=== PATIENT | female | born 1975 | race Caucasian/White ===

== ENCOUNTER 2018-03-07 11:57 | Inpatient (IN) | payer OTHER ==
[~2018-03-07] VITALS: Ht 152.4 cm; Wt 72.6 kg
[2018-03-07 12:03] VITALS: BP_SYST 137
[2018-03-07] MEDS ORDERED: KETOROLAC TROMETHAMINE 30 MG VIAL IVP ONE (12:45)
[2018-03-07 12:54] LABS: BASOPHILS % (AUTO) 0.4 % (0.0-2.0); EOSINOPHILS # (AUTO) 0.4 K/uL (0.0-0.4); EOSINOPHILS % (AUTO) 5.2 % (0.0-4.0); HEMATOCRIT 39.3 % (36-48); HEMOGLOBIN 13.3 g/dL (12.0-16.0); LYMPHOCYTES % (AUTO) 24.4 % (20.5-51.5); MEAN CORPUSCULAR HEMOGLOBIN 31 pg (27-31); MEAN CORPUSCULAR HGB CONC 34 % (32-36); MEAN CORPUSCULAR VOLUME 91 fL (79.0-98.0); MONOCYTES # (AUTO) 0.5 K/uL (0.0-1.0); MONOCYTES % (AUTO) 5.8 % (1.7-9.3); NEUTROPHILS # (AUTO) 5.1 K/uL (1.8-7.7); NEUTROPHILS % (AUTO) 64.2 % (40.0-70.0); PLATELET COUNT (AUTO) 297 K/uL (130-430); RED BLOOD CELL COUNT(AUTO) 4.32 MIL/uL (4.2-6.2); RED CELL DISTRIBUTION WIDTH 12.8 % (9.0-15.0)
[2018-03-07 13:10] LABS: CALCIUM 8.5 mg/dL (8.4-11.0); CREATININE 0.61 mg/dL (0.55-1.30); POTASSIUM 3.8 mmol/L (3.5-5.1)
[2018-03-07 13:15] LABS: ALBUMIN 3.2 g/dL (3.4-4.8); TOTAL BILIRUBIN 0.3 mg/dL (0.0-1.0)
[2018-03-07] MEDS ORDERED: fentaNYL CITRATE/PF 100 MCG/2 ML AMP IVP ONE (14:00)
[2018-03-07] MEDS ORDERED: KETOROLAC TROMETHAMINE 15 MG VIAL IVP SCH (14:45)
[2018-03-07] MEDS ORDERED: METO-442 PO (15:21)
[2018-03-07 15:48] VITALS: BP_SYST 132
[2018-03-07] MEDS ORDERED: LORazepam 1 MG TABLET PO ONE (17:00)
[2018-03-07] MEDS ORDERED: HYDROmorphone 2 MG/ML VIAL IVP PRN ×2 (17:00→18:45)
[2018-03-07] MEDS: ONDANSETRON HCL 4 MG/2 ML VIAL IVP PRN (17:30)
[2018-03-07 20:30] VITALS: BP_SYST 119
[2018-03-07] MEDS: CYCLOBENZAPRINE HCL 10 MG TABLET (FLEXERIL) PO SCH (20:45)
[2018-03-07] MEDS: ENOXAPARIN SODIUM 40 MG/0.4 ML SYRINGE SUBCUT SCH (20:47)
[2018-03-07] MEDS: HYDROmorphone 1 MG INJ. 1 MG/ML AMPUL IM PRN (21:38)
[2018-03-08] MEDS: HYDROmorphone 1 MG INJ. 1 MG/ML AMPUL IM PRN (01:25)
[2018-03-08 02:13] VITALS: BP_SYST 108
[2018-03-08] MEDS: KETOROLAC TROMETHAMINE 15 MG VIAL IVP PRN ×2 (04:59→12:58)
[2018-03-08] MEDS: ONDANSETRON HCL 4 MG/2 ML VIAL IVP PRN ×2 (05:44→19:58)
[2018-03-08] MEDS: HYDROmorphone 1 MG INJ. 1 MG/ML AMPUL IVP PRN ×5 (05:45→23:13)
[2018-03-08] MEDS ORDERED: LORazepam 1 MG TABLET PO ONE (07:15)
[2018-03-08 08:05] VITALS: BP_SYST 106
[2018-03-08 12:21] VITALS: BP_SYST 142
[2018-03-08 16:04] VITALS: BP_SYST 142
[2018-03-08 19:10] VITALS: BP_SYST 134
[2018-03-08] MEDS: CYCLOBENZAPRINE HCL 10 MG TABLET (FLEXERIL) PO SCH (21:28)
[2018-03-08] MEDS: ENOXAPARIN SODIUM 40 MG/0.4 ML SYRINGE SUBCUT SCH (21:29)
[2018-03-09 00:04] VITALS: BP_SYST 140
[2018-03-09] MEDS: HYDROmorphone 1 MG INJ. 1 MG/ML AMPUL IVP PRN ×8 (03:17→22:43)
[2018-03-09 08:00] VITALS: BP_SYST 135
[2018-03-09] MEDS: KETOROLAC TROMETHAMINE 15 MG VIAL IVP PRN (08:06)
[2018-03-09 12:00] VITALS: BP_SYST 126
[2018-03-09] MEDS: ONDANSETRON HCL 4 MG/2 ML VIAL IVP PRN (12:44)
[2018-03-09 16:41] VITALS: BP_SYST 132
[2018-03-09] MEDS ORDERED: MILK OF MAGNESIA 30 ML UDC PO PRN (18:15)
[2018-03-09 19:15] VITALS: BP_SYST 148
[2018-03-09] MEDS: CYCLOBENZAPRINE HCL 10 MG TABLET (FLEXERIL) PO SCH (21:49)
[2018-03-09] MEDS: SENNOSIDES 8.6 MG TABLET PO SCH (21:49)
[2018-03-09] MEDS: ENOXAPARIN SODIUM 40 MG/0.4 ML SYRINGE SUBCUT SCH (21:53)
[2018-03-10 01:17] VITALS: BP_SYST 112
[2018-03-10] MEDS: HYDROmorphone 1 MG INJ. 1 MG/ML AMPUL IVP PRN ×7 (02:27→23:42)
[2018-03-10] MEDS: KETOROLAC TROMETHAMINE 15 MG VIAL IVP PRN ×2 (03:37→14:43)
[2018-03-10 08:00] VITALS: BP_SYST 132
[2018-03-10 12:00] VITALS: BP_SYST 128
[2018-03-10] MEDS ORDERED: METOPROLOL TARTRATE 50 MG TABLET PO ONE (14:00)
[2018-03-10] MEDS ORDERED: BISACODYL 10 MG/SUPPOSITORY RC PRN (14:00)
[2018-03-10] MEDS ORDERED: BISACODYL 10 MG/SUPPOSITORY RC ONE (14:00)
[2018-03-10 16:00] VITALS: BP_SYST 129
[2018-03-10 19:45] VITALS: BP_SYST 132
[2018-03-10] MEDS: SENNOSIDES 8.6 MG TABLET PO SCH (20:10)
[2018-03-10] MEDS: CYCLOBENZAPRINE HCL 10 MG TABLET (FLEXERIL) PO SCH (20:10)
[2018-03-10] MEDS: ENOXAPARIN SODIUM 40 MG/0.4 ML SYRINGE SUBCUT SCH (20:16)
[2018-03-10] MEDS: ONDANSETRON HCL 4 MG/2 ML VIAL IVP PRN (23:45)
[2018-03-11 00:14] VITALS: BP_SYST 129
[2018-03-11] MEDS: HYDROmorphone 1 MG INJ. 1 MG/ML AMPUL IVP PRN ×6 (03:08→20:57)
[2018-03-11 08:00] VITALS: BP_SYST 137
[2018-03-11] MEDS: METOPROLOL TARTRATE 50 MG TABLET PO SCH (08:28)
[2018-03-11] MEDS: KETOROLAC TROMETHAMINE 15 MG VIAL IVP PRN (08:31)
[2018-03-11 12:00] VITALS: BP_SYST 116
[2018-03-11] MEDS: ONDANSETRON HCL 4 MG/2 ML VIAL IVP PRN (14:15)
[2018-03-11 16:00] VITALS: BP_SYST 128
[2018-03-11 19:45] VITALS: BP_SYST 126
[2018-03-11] MEDS: CYCLOBENZAPRINE HCL 10 MG TABLET (FLEXERIL) PO SCH (20:54)
[2018-03-11] MEDS: SENNOSIDES 8.6 MG TABLET PO SCH (20:57)
[2018-03-11] MEDS: ENOXAPARIN SODIUM 40 MG/0.4 ML SYRINGE SUBCUT SCH (21:09)
[2018-03-12] MEDS: HYDROmorphone 1 MG INJ. 1 MG/ML AMPUL IVP PRN ×5 (00:35→13:08)
[2018-03-12 01:11] VITALS: BP_SYST 119
[2018-03-12 07:54] VITALS: BP_SYST 112
[2018-03-12] MEDS: METOPROLOL TARTRATE 50 MG TABLET PO SCH (08:04)
[2018-03-12] MEDS: KETOROLAC TROMETHAMINE 15 MG VIAL IVP PRN (08:10)
[2018-03-12 12:00] VITALS: BP_SYST 108
[2018-03-12] MEDS ORDERED: HYDR2TAB4 PO (12:31)
[2018-03-12] MEDS ORDERED: CYCL-10 PO (12:32)
[2018-03-12] MEDS ORDERED: SENN17.24 PO (12:34)
[2018-03-12 12:44] VITALS: BP_SYST 110
== END 2018-03-12 13:35 | disposition home or self-care (01) | DRG 552 ==
LOC: SED 11:57 → SMU 14:36
PROVIDERS: ADMIT Family Medicine; ATTEND Family Medicine
DX: M50.11 Cervical disc disorder with radiculopathy, high cervical region (principal); I10 Essential (primary) hypertension; E78.5 Hyperlipidemia, unspecified; K59.00 Constipation, unspecified; Z88.5 Allergy status to narcotic agent; Z88.1 Allergy status to other antibiotic agents; Z79.899 Other long term (current) drug therapy
CPT/HCPCS: 36415; 72100-TC; 72148; 80053; 85025; 96374; 96375; 99285; J1170; J1650; J1885; J2405; J3010